=== PATIENT | female | born 1955 | race Caucasian/White ===

== ENCOUNTER 2018-05-05 17:16 | Emergency (ER) | payer SELFPAY ==
[~2018-05-05] VITALS: Ht 165.1 cm; Wt 77.1 kg
[2018-05-05 17:35] VITALS: BP 157/66
== END 2018-05-05 21:58 | disposition home or self-care (01) ==
LOC: ER 17:16
DX: L25.9 Unspecified contact dermatitis, unspecified cause (principal); K21.9 Gastro-esophageal reflux disease without esophagitis; E78.5 Hyperlipidemia, unspecified; E07.89 Other specified disorders of thyroid; Z76.0 Encounter for issue of repeat prescription